=== PATIENT | female | born 1950 | race Caucasian/White ===

== ENCOUNTER 2020-06-04 10:23 | Emergency (ER) | payer OTHER ==
[~2020-06-04] VITALS: Ht 337.8 cm; Wt 66.2 kg
[2020-06-04 10:32] VITALS: Ht 337.8 cm; Wt 66.2 kg
[2020-06-04 12:23] VITALS: BP 118/62
== END 2020-06-04 12:20 | disposition home or self-care (01) ==
LOC: ED 10:23 → EDBD 10:23 → ED 12:20
DX: S70.01XA Contusion of right hip, initial encounter (principal); I10 Essential (primary) hypertension; E11.9 Type 2 diabetes mellitus without complications; W01.0XXA Fall on same level from slipping, tripping and stumbling without subsequent striking against object, initial encounter; Y93.89 Activity, other specified; Y92.89 Other specified places as the place of occurrence of the external cause; Y99.8 Other external cause status
CPT/HCPCS: J1885

== ENCOUNTER 2020-06-06 09:31 | Emergency (ER) | payer OTHER ==
[~2020-06-06] VITALS: Ht 162.6 cm; Wt 67.6 kg
[2020-06-06 09:45] VITALS: Ht 162.6 cm; Wt 67.6 kg
[2020-06-06 11:44] VITALS: BP 124/78
== END 2020-06-06 11:44 | disposition home or self-care (01) ==
LOC: ED 09:31
DX: M16.11 Unilateral primary osteoarthritis, right hip (principal); K29.70 Gastritis, unspecified, without bleeding; F17.210 Nicotine dependence, cigarettes, uncomplicated; I10 Essential (primary) hypertension; E11.9 Type 2 diabetes mellitus without complications